=== PATIENT | male | born 2000 | race Caucasian/White ===

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

== ENCOUNTER 2022-11-16 12:03 | Emergency (ER) | payer OTHER, SELFPAY ==
[2022-11-16 12:14] VITALS: BP 132/80; PULSE 82; RESP 18; TEMP 36.8; O2SAT 99
--- NOTE | 2022-11-16 14:08 | ED.GENADUL_ITS ---
Discharge Plan Disposition Patient Disposition: Home Condition: Improving Discharge Details Chief Complaint: Laceration Clinical Impression: Laceration of hand Primary Care Provider: Lashonda Walker ED Provider: Chucho Navarro Home Meds and New Rx's Prescriptions: No Action No Known Home Meds Discharge Instructions Instructions: Laceration (ED) Discharge Data Discharge Physician: Chucho Navarro Medical Decision Making Patient who sustained a laceration to the right hand that was sutured successfully after the wound was irrigated he received a tetanus shot and will be discharged home HPI General Date/Time Provider Initiated Documentation: 11/16/22 14:08 . HPI Narrative: Patient presents emergency department after he got his hand caught in a chain saw sustaining a laceration to the dorsal aspect of the right hand over the fifth metacarpal Related Data Home Medications Medication Instructions Recorded Confirmed Unknown [No Known Home Meds] 11/13/19 11/16/22 Allergies Allergy/AdvReac Type Severity Reaction Status Date / Time poison germaine extract Allergy Rash Verified 12/26/20 15:10 General Stated Complaint: Laceration VIVI: 4 Review of Systems All systems reviewed & are unremarkable except as noted in HPI and below Constitutional Constitutional: Reports as per HPI and Reports system reviewed and no additional complaints, except as documented Eyes Eyes: Reports as per HPI and Reports system reviewed and no additional complaints, except as documented ENT Ears, Nose, Mouth, and Throat: Reports system reviewed and no additional complaints, except as documented and Reports as per HPI Cardiovascular Cardiovascular: Reports as per HPI and Reports system reviewed and no additional complaints, except as documented Respiratory Respiratory: Reports as per HPI and Reports system reviewed and no additional complaints, except as documented Gastrointestinal Gastrointestinal: Reports as per HPI and Reports system reviewed and no additional complaints, except as documented Musculoskeletal Musculoskeletal: Reports system reviewed and no additional complaints, except as documented Neurologic Neurologic: Reports system reviewed and no additional complaints, except as documented Psychiatric Psychiatric: Reports system reviewed and no additional complaints, except as documented Endocrine Endocrine: Reports system reviewed and no additional complaints, except as documented Hematologic/Lymphatic Hematologic/Lymphatic: Reports system reviewed and no additional complaints, except as documented Allergic/Immunologic Allergic/Immunologic: Reports system reviewed and no additional complaints, except as documented PFSH All Active Problems (Updated 11/16/22 @ 14:16 by Chucho Navarro MD) Laceration of hand (Acute) Routine child health exam (Acute 11/29/13) Low ferritin (Acute) 11- twice flagged after blood donation- Nl hgb 13.8 01/12 will follow no eval needed Family History Other No problems noted. Mother No problems noted. Social History Smoking risk assessment performed?: No Alcohol Intake: current Alcohol Intake frequency: a few times a week Alcohol type: beer and wine Drug use: Occasionally Substance use type: marijuana Do you feel safe at home: Yes Do you feel safe in your relationship?: Yes Exam Const General: cooperative, healthy appearing, comfortable and no acute distress HENMT Head: normal to inspection, no palpable skull fracture and normocephalic Ears: hearing grossly normal bilaterally General nose exam: external nose normal Face and sinus: normal facial exam Mouth: oral mucosae normal Teeth and gingiva: dentition normal Eyes General: appearance normal, both eyes and all related structures Conjunctivae: conjunctivae normal EOM: EOM intact bilaterally Neck Neck: normal visual inspection, full ROM and no lymphadenopathy Chest Chest: normal inspection of the chest and normal palpation of entire chest wall Resp Effort & Inspection: normal respiratory effort and able to speak in complete sentences Cardio Jugular venous pressure: no JVD Palpation: normal PMI Rate: regular rate Rhythm: regular rhythm GI Inspection: normal to inspection Back/Spine/Pelvis Back: no CVA tenderness Skin Trauma: laceration right hand irregular and actively bleeding Course Vital Signs Vital signs: Vital Signs Temperature 36.8 C 11/16/22 12:14 Pulse 82 11/16/22 12:14 Respiratory Rate 18 11/16/22 12:14 Blood Pressure 132/80 11/16/22 12:14 Pulse Oximetry 99 11/16/22 12:14 Temperature 36.8 C 11/16/22 12:14 Pulse 82 11/16/22 12:14 Respiratory Rate 18 11/16/22 12:14 Respiratory Effort Normal, Non-Labored 11/16/22 12:17 Blood Pressure 132/80 11/16/22 12:14 Blood Pressure Position Sitting 11/16/22 12:14 Pulse Oximetry 99 11/16/22 12:14 Oxygen Delivery Method Room Air 11/16/22 12:14 Oxygen Flow Rate 0 11/16/22 12:14 Procedures Laceration Laceration 1: Site: hand Side (If applicable): right Size (cm): 4 Description: irregular Depth: simple, single layer Local Anesthetic: Lidocaine 1% Amount of anesthesia used (mL): 5 Pre-repair: wound explored, irrigated extensively and wound margins revised Skin layer closed with: other (prolene) Size (cm): 4-0 Number of sutures: 5 Technique: simple, interrupted
[2022-11-16 14:18] VITALS: PULSE 87; RESP 18; O2SAT 100
== END 2022-11-16 14:19 | disposition home or self-care (01) ==
PROVIDERS: Emergency Provider Emergency Medicine Emergency Medical Services; PCP Student in an Organized Health Care Education/Training Program
DX: S61.411A Laceration without foreign body of right hand, initial encounter (principal); W31.2XXA Contact with powered woodworking and forming machines, initial encounter
CPT/HCPCS: 12002; 90471

== ENCOUNTER 2022-11-22 16:28 | Emergency (ER) | payer SELFPAY ==
[2022-11-22 16:32] VITALS: BP 118/51; PULSE 61; RESP 18; TEMP 37.1; O2SAT 98
--- NOTE | 2022-11-22 16:33 | W.ED.GENAD ---
Discharge Plan Disposition Patient Disposition: Home Discharge Details Clinical Impression: Encounter for removal of sutures Primary Care Provider: Lashonda Walker ED Provider: Vicente Luis Home Meds and New Rx's Prescriptions: No Action No Known Home Meds Discharge Instructions Additional Instructions: You were seen in the emergency department for your suture removal. Your wound appears to be healing well. Please return to the emergency department if you develop any fevers chills or shortness of breath. Discharge Data Discharge Date/Time-TO BE ENTERED AT DEPARTURE: 11/22/22 16:41 Medical Decision Making This is an overall very well-appearing normothermic and not tachycardic palrd-roro-zuzdhatx male with well-healing laceration to the dorsal aspect of his right hand with 4 blue sutures. No signs of superinfection. Nurse will remove the patient's stitches. I did chromosomal disorders counselor him that his wound was at the weakest after stitches were removed and that if he developed any bleeding or any signs of infection such as foul-smelling drainage pus or any fevers that he should return to the ED. He understood his return indications and was discharged with outpatient and management as needed. HPI General Date/Time Provider Initiated Documentation: 11/22/22 16:33. HPI Narrative: This is a [id number]-[id number] 22-year-old male in the emergency department for suture removal following a laceration he sustained 6 days ago to his right hand. He is moving his hand well. He has had no fevers nor any foul-smelling drainage. He denies any new injuries. Related Data Home Medications Medication Instructions Recorded Confirmed Unknown [No Known Home Meds] 11/13/19 11/22/22 Allergies Allergy/AdvReac Type Severity Reaction Status Date / Time poison germaine extract Allergy Rash Verified 11/22/22 16:33 General Stated Complaint: SutureRem VIVI: 5 PFSH All Active Problems (Updated 11/22/22 @ 16:36 by Vicente Luis MD) Laceration of hand (Acute) Encounter for removal of sutures (Acute) Routine child health exam (Acute 11/29/13) Low ferritin (Acute) 11- twice flagged after blood donation- Nl hgb 13.8 01/12 will follow no eval needed Family History Other No problems noted. Mother No problems noted. Social History Smoking/Tobacco Use Status: Never Smoking risk assessment performed?: Yes Alcohol Intake: current Alcohol Intake frequency: a few times a week Alcohol type: beer and wine Drug use: Occasionally Substance use type: marijuana Do you feel safe at home: Yes Do you feel safe in your relationship?: Yes Exam Narrative Exam Narrative: General: Well-appearing in no acute distress speaking in complete sentences. Head: Normocephalic, atraumatic. Ear, nose, mouth, throat: Grossly normal inspection. Normal voice, handling secretions normally. Neck: Trachea midline. Cardiovascular: Well-perfused distal extremities. Respiratory: Nonlabored respiration. Gastrointestinal: Nondistended abdomen. Musculoskeletal: On the dorsal aspect of the patient's right hand just distal to the wrist there is a well-healing approximately 3 cm laceration well approximated with 4 blue sutures. No surrounding erythema nor fluctuance. Skin: Normal for age and race, grossly normal temperature and turgor. No acute rash. Neurologic: Alert and appropriate, no apparent acute deficits. Psychiatric: Mood and manner are appropriate. Grooming and personal hygiene are appropriate. Course Vital Signs Vital signs: Vital Signs Temperature 37.1 C 11/22/22 16:32 Pulse 61 11/22/22 16:32 Respiratory Rate 18 11/22/22 16:32 Blood Pressure 118/51 L 11/22/22 16:32 Pulse Oximetry 98 11/22/22 16:32 Temperature 37.1 C 11/22/22 16:32 Temperature Source Temporal Artery Scan 11/22/22 16:32 Pulse 61 11/22/22 16:32 Respiratory Rate 18 11/22/22 16:32 Blood Pressure 118/51 L 11/22/22 16:32 Pulse Oximetry 98 11/22/22 16:32 Oxygen Delivery Method Room Air 11/22/22 16:32 Oxygen Flow Rate 0 11/22/22 16:32
== END 2022-11-22 16:41 | disposition home or self-care (01) ==
LOC: ER 16:38
PROVIDERS: Emergency Provider Emergency Medicine; PCP Student in an Organized Health Care Education/Training Program
DX: S61.411D Laceration without foreign body of right hand, subsequent encounter (principal); X58.XXXD Exposure to other specified factors, subsequent encounter; Z48.02 Encounter for removal of sutures

== ENCOUNTER 2024-01-16 07:25 | Emergency (ER) | payer SELFPAY ==
[2024-01-16 07:28] VITALS: BP 113/61; PULSE 81; RESP 16; TEMP 36.5; O2SAT 99
--- NOTE | 2024-01-16 07:39 | ED.GENADUL_ITS ---
Discharge Plan Disposition Patient Disposition: Home Condition: Stable Discharge Details Chief Complaint: Laceration Clinical Impression: Laceration of left middle finger Primary Care Provider: Lashonda Walker ED Provider: Edward Dong Home Meds and New Rx's Prescriptions: No Action No Known Home Meds Discharge Instructions Instructions: Laceration Repair With Glue ED Additional Instructions: Return to the emergency department if you develop signs of infection such as spreading redness down the finger or severe pain. HPI General Mode of arrival: ambulatory . Date/Time Provider Initiated Documentation: 01/16/24 07:33 . Limitations to Documentation: no limitations . Information obtained by: patient . History of Present Illness 23 year old M pr esents to the emergency department with the chief complaint of left middle finger injury, described as mild, and is localized to the left and upper extremity. Patient reports no radiation. Patient started experiencing this hour(s) (1) and it has been constant. No relieving factors improve symptom(s), No exacerbating factors reported . Patient notes no other symptoms.. Patient did receive the following treatments prior to arrival, none Related Data Home Medications ?Medication ?Instructions ?Recorded ?Confirmed Unknown [No Known Home Meds] 11/13/19 01/16/24 Allergies Allergy/AdvReac Type Severity Reaction Status Date / Time poison germaine extract Allergy Rash Verified 01/16/24 07:44 General Stated Complaint: Laceration VIVI: 4 Review of Systems All systems reviewed & are unremarkable except as noted in HPI and below Constitutional Constitutional: Denies chills, Denies fever(s) and Denies weakness Cardiovascular Cardiovascular: Denies dyspnea Respiratory Respiratory: Denies dyspnea Gastrointestinal Gastrointestinal: Denies abdominal pain and Denies vomiting Musculoskeletal Musculoskeletal: Denies joint swelling Neurologic Neurologic: Denies weakness Exam Const General: no acute distress Orientation: alert [facility] Head: normal to inspection Ears: external ears normal General nose exam: external nose normal Mouth: moist mucous membranes Eyes General: appearance normal, both eyes and all related structures Neck Neck: normal visual inspection Resp Effort & Inspection: normal respiratory effort and able to speak in complete sentences Cardio Rate: regular rate Skin General skin exam: no rashes or lesions noted Neuro General: patient alert Extrem General: full ROM and capillary refill normal Psych Mental Status: mental status grossly normal Course Vital Signs Vital signs: Vital Signs Temperature 36.5 C 01/16/24 07:28 Pulse 81 01/16/24 07:28 Respiratory Rate 16 01/16/24 07:28 Blood Pressure 113/61 01/16/24 07:28 Pulse Oximetry 99 01/16/24 07:28 Temperature 36.5 C 01/16/24 07:28 Pulse 81 01/16/24 07:28 Respiratory Rate 16 01/16/24 07:28 Blood Pressure 113/61 01/16/24 07:28 Pulse Oximetry 99 01/16/24 07:28 Oxygen Delivery Method Room Air 01/16/24 07:28 Oxygen Flow Rate 0 01/16/24 07:28 Medical Decision Making 23-year-old male denies any significant past medical history and states he is up-to-date on tetanus vaccines, comes in with a left middle finger injury. He says he was cutting a metal centimeter trash when slipped and cut his left anterior middle finger over the distal palmar surface. He did not fall or hit his head. He has a very superficial skin tear of the distal left anterior middle finger. He is full range of motion intact sensation and normal cap refill. The wound is superficial enough for nothing and needs any sutures, will closed with skin adhesive after his cleaned. No findings on exam or history to suggest neurovascular or tendon injury. After copious irrigation and cleaning, and using a finger tourniquet I applied skin adhesive for closure of the wound. He tolerated well. He is stable for discharge, return precautions given. Differential Diagnosis Differential Diagnosis: laceration, abrasion Quality:SDOH Health Related Social Needs: No Data to Display PFSH All Active Problems (Updated 01/16/24 @ 07:51 by Edward Dong MD) Laceration of left middle finger (Acute) Routine child health exam (Acute 11/29/13) Low ferritin (Acute) 11- twice flagged after blood donation- Nl hgb 13.8 01/12 will follow no eval needed Family History Other No problems noted. Mother No problems noted. Social History Smoking/Tobacco Use Status: Never Smoking risk assessment performed?: Yes Alcohol Intake: current Alcohol Intake frequency: a few times a week Alcohol type: beer and wine Drug use: Occasionally Substance use type: marijuana Do you feel safe at home: Yes Do you feel safe in your relationship?: Yes
--- NOTE | 2024-01-16 07:42 | NUR.NOTE ---
Nursing Note: this RN cleanse wound provider repaired with surg glue. patient tolerated well
== END 2024-01-16 08:34 | disposition home or self-care (01) ==
LOC: ER 08:01
PROVIDERS: Emergency Provider Emergency Medicine; PCP Student in an Organized Health Care Education/Training Program
DX: S61.213A Laceration without foreign body of left middle finger without damage to nail, initial encounter (principal); W26.8XXA Contact with other sharp object(s), not elsewhere classified, initial encounter
CPT/HCPCS: 99281; 99282

== ENCOUNTER 2024-09-21 05:56 | Emergency (ER) | payer OTHER, BC, SELFPAY ==
[2024-09-21 05:59] VITALS: BP 136/70; PULSE 76; RESP 18; TEMP 36.5; O2SAT 100
--- NOTE | 2024-09-21 06:33 | ED.GENADUL_ITS ---
Discharge Plan Discharge Details Chief Complaint: Abd Prob Primary Care Provider: Unknown,Unknown ED Provider: Ophelia Ellis Home Meds and New Rx's Prescriptions: No Action No Known Home Meds HPI General Mode of arrival: ambulatory . Date/Time Provider Initiated Documentation: 09/21/24 06:10 . Limitations to Documentation: no limitations . Information obtained by: patient . HPI Narrative: 24yo M presenting with acute RLQ abdominal pain onset this morning. [place] well yesterday. Woke with severe right sided abdominal pain, unrelieved by bowel movement. Pain worse with motion. No nausea, vomiting, or diarrhea. No bloody stool. No fevers. No testicular pain. Decreased appetite this morning. No alleviating factors. Otherwise in his usual state of health. Related Data Home Medications ?Medication ?Instructions ?Recorded ?Confirmed Unknown [No Known Home Meds] 11/13/19 09/21/24 Allergies Allergy/AdvReac Type Severity Reaction Status Date / Time poison germaine extract Allergy Rash Verified 09/21/24 06:03 General Stated Complaint: Abd Prob VIVI: 3 Review of Systems Narrative: see HPI Exam Narrative Exam Narrative: General: Alert, well appearing, well nourished, in no acute distress. Head: Normocephalic, atraumatic Neck: Trachea midline, ?Neck supple. ENT: ?MMM.? No oropharygeal lesions or exudate. Cardiac: ?RRR, no murmurs appreciated Resp: No respiratory distress. CTAB. Abd: ?Soft, non-distended. RLQ TTP with voluntary guarding. No rebound tenderness. : ?No suprapubic tenderness. Extremities: ?No deformities.? No peripheral edema. Neurologic: GCS 15. ? Moves all extremities freely against gravity Course Vital Signs Vital signs: Vital Signs Temperature 36.5 C 09/21/24 05:59 Pulse 76 09/21/24 05:59 Respiratory Rate 18 09/21/24 05:59 Blood Pressure 136/70 09/21/24 05:59 Pulse Oximetry 100 09/21/24 05:59 Temperature 36.5 C 09/21/24 05:59 Temperature Source Oral 09/21/24 05:59 Pulse 76 09/21/24 05:59 Respiratory Rate 18 09/21/24 05:59 Blood Pressure 136/70 09/21/24 05:59 Blood Pressure Position Sitting 09/21/24 05:59 Pulse Oximetry 100 09/21/24 05:59 Oxygen Delivery Method Room Air 09/21/24 05:59 Oxygen Flow Rate 0 09/21/24 05:59 Medical Decision Making 24yo M presenting with acute RLQ abdominal pain onset this morning. Vital signs reassuring on arrival. RLQ TTP on exam with voluntary guarding. Will give tylenol, toradol for pain. Concern for possible appendicitis; less likely bowel obstruction, nephrolithiasis, cystitis, inflammatory bowel disease, diverticulitis, colitis. Will risk stratify with labs and obtain CT to evaluate for potentially surgical pathology. Labs reviewed as below, CBC with leukocytosis to 19, CMP with no actionable abnormalities. Will be signed out to oncoming physician, plan to followup CT and UA. Quality:SDOH Health Related Social Needs: No Data to Display PFSH All Active Problems (Updated 02/16/24 @ 00:08 by CYNTHIA BURGER) Routine child health exam (Acute 11/29/13) Low ferritin (Acute) 11- twice flagged after blood donation- Nl hgb 13.8 01/12 will follow no eval needed Family History Other No problems noted. Mother No problems noted. Social History Smoking/Tobacco Use Status: Never Smoking risk assessment performed?: Yes Alcohol Intake: current Alcohol Intake frequency: a few times a month Alcohol type: beer and wine Drug use: Occasionally Substance use type: marijuana Do you feel safe at home: Yes Do you feel safe in your relationship?: Yes
[2024-09-21] MEDS: Ketorolac 15 MG/ML VIAL IVP (06:41)
[2024-09-21] MEDS: ACETAMINOPHEN 1,000 MG/100 ML BAG 400 MG IVPB (06:41)
[2024-09-21 06:45] LABS: Absolute Basophil Count 0.06 10^3/uL (0.0-0.2); Absolute Lymphocyte Count 1.97 10^3/uL (1.2-3.4); Absolute Monocyte Count 0.73 10^3/uL (0.1-0.8); Basophils % 0.3 %; Eosinophils % 0.7 %; HCT 43.4 % (40.0-50.0); HGB 14.7 g/dL (13.5-17.5); Immature Grans % 0.5 %; MCH 30.3 pg (27.0-33.0); MCHC 33.9 % (32.0-36.0); MCV 90 fL (80-95); MPV 9.1 fL (8.0-11.0); Monocytes % 3.7 %; Neutrophils % 84.8 %; Platelet Count 285 10^3/uL (130-400); RBC 4.85 10^6/uL (4.36-5.78); RDW 12.5 % (11.8-14.1); RDW-SD 41.1 fL; WBC 19.74 10^3/uL (4.4-10.8)
[2024-09-21 06:47] LABS: Absolute Eosinophil Count 0.14 10^3/uL (0.0-0.7); Absolute Neutrophil Count 16.74 10^3/uL (1.2-6.7)
[2024-09-21 07:19] LABS: ALT 20 U/L (16-63); AST 17 U/L (15-37); Albumin 4.2 g/dL (3.4-5.0); Alkaline Phosphatase 67 U/L (46-116); Anion Gap 9.4 mmol/L (3-11); BUN 13 mg/dL (7-18); Bilirubin, Total 0.8 mg/dL (0.2-1.0); CO2 28.6 mmol/L (21.0-32.0); CREATININE 0.9 mg/dL (0.70-1.30); Calcium 9.4 mg/dL (8.5-10.1); Chloride 105 mmol/L (98-107); Estimated GFR 123.07 (mL/min/1.73m2); Glucose 105 mg/dL (74-106); Potassium 4.1 mmol/L (3.5-5.1); Sodium 143 mmol/L (136-145); Total Protein 7.1 g/dL (6.4-8.2)
[2024-09-21 07:35] LABS: Bilirubin Negative (Negative); Blood Negative (Negative); Clarity Cloudy (Clear); Glucose Negative (Negative); Ketones Negative (Negative); Leukocyte Esterase Negative (Negative); Nitrite Negative (Negative); Urobilinogen 0.2 mg/dL (Up to 0.2)
[2024-09-21] MEDS: Omnipaque 350 MG/ML 100 ML BTL IJ (07:47)
[2024-09-21] MEDS: Normal Saline - Diluent 50 ML VIAL IJ (07:49)
--- NOTE | 2024-09-21 07:56 | DI.CT_ITS ---
Exam(s) CT ABDOMEN PELVIS W EXAM: CT ABDOMEN PELVIS W CLINICAL HISTORY: RLQ TTP. TECHNIQUE: Imaging Protocol: Axial computed tomography images with coronal and sagittal reformatted images were created and reviewed CONTRAST MATERIAL: Intravenous: Omnipaque-350 75cc Oral: None COMPARISON: No exams were available for comparison FINDINGS: VISUALIZED LUNG BASES: No nodules nor pleural effusions evident. ABDOMEN: There is no ascites. LIVER: There are no focal hepatic lesions evident. There are mildly dilated intrahepatic ducts evide nt both lobes liver. The CBD is not dilated. GALLBLADDER/BILIARY: No obvious gallbladder pathology. CBD is not dilated. PANCREAS: No evidence of pancreatic mass nor dilatation of the pancreatic duct. SPLEEN: Spleen is not enlarged. No obvious intrasplenic lesions. Splenic and portal veins are paten t. ADRENALS: There are no significant adrenal masses. KIDNEYS:No cysts evident. There is a single nonobstructive small calculus in both kidneys measuring 2 -3 mm.. No solid renal masses. No hydronephrosis. Retroaortic left renal vein is incidentally note d. ABDOMINAL AORTA: Abdominal aorta is not enlarged. LYMPH NODES:There is no retroperitoneal nor paraaortic adenopathy. ABDOMINAL WALL: No evidence of significant anterior abdominal wall nor inguinal hernia. GI: There is no evidence of bowel obstruction, free air, nor abscess. PELVIS: GI: No evidence of appendicitis.No evidence of sigmoid diverticulitis. LYMPH NODES: There is no intrapelvic nor inguinal adenopathy. REPRODUCTIVE: Prostate size normal. URINARY BLADDER: Bladder is collapsed. There are no radiopaque calculi seen in the urinary bladder n or at the ureterovesical junctions. Pelvic ureters are not dilated. OSSEOUS: No fractures and no significant osseous lesions. IMPRESSION: 1. Bilateral nephrolithiasis. There is a single small 2-3 mm calculus in each kidney. No hydronephr osis nor hydroureter. There are no obvious radiopaque calculi evident in the collapsed urinary bladd er lumen. 2. No evidence of acute appendicitis. 3. Mildly dilated intrahepatic ducts. The CBD is not dilated and the gallbladder is not distended. No obvious gallstones. Report called to ER provider 09/21/2024 at 8:26 a.m. RADIATION DOSE DELIVERED: 335.21mGy.cm Total DLP DATA REPOSITORY: All CT scans at this facility are submitted to the National Radiology Data Registry (NRDR) Dose Index Registry (DIR) with the [employer] ([employer]). RADIATION OPTIMIZATION: All CT scans at this facility use at least one of these dose optimization te chniques: automated exposure control; mA and/or kV adjustment per patient size (includes targeted exa ms where dose is matched to clinical indication); or iterative reconstruction.
[2024-09-21 08:22] VITALS: BP 113/62; PULSE 65; RESP 14; TEMP 36.4; O2SAT 100
--- NOTE | 2024-09-21 08:33 | ED.PROG_ITS ---
Date of service: 09/21/24 Time of Service: 08:33 Medical Decision Making Care signed out by Dr. Segura, please see her documentation regarding initial ED presentation and course. Plan at signout was to follow-up on CT imaging. CT of the abdomen pelvis was reviewed and interpreted by Dr. Jackson, radiologist. I spoke with Dr. Jackson about the study. He did visualize the appendix and there is no signs of appendicitis. Impression from Dr. Jackson: 1. Bilateral nephrolithiasis. There is a single small 2-3 mm calculus in each kidney. No hydronephrosis nor hydroureter. There are no obvious radiopaque calculi evident in the collapsed urinary bladder lumen. 2. No evidence of acute appendicitis. 3. Mildly dilated intrahepatic ducts. The CBD is not dilated and the gallbladder is not distended. No obvious gallstones. Labs reviewed and leukocytosis is noted. Urinalysis normal. All results were discussed with the patient. A copy of the CT imaging report was provided to the patient. Patient notes pain completely resolved at this point. Plan for discharge with close outpatient follow-up with PCP. Patient was encouraged to return immediately for any worsening or new concerning symptoms. Patient verbalized understanding. Patient stable at time of discharge. Usual and customary discharge instructions were reviewed. Lab Data Lab results reviewed: Yes I reviewed the patient's lab results. Labs: Laboratory Tests Range/Units 09/21/24 09/21/24 06:35 07:28 WBC (4.4-10.8) 10^3/uL 19.74 H RBC (4.36-5.78) 10^6/uL 4.85 Hgb (13.5-17.5) g/dL 14.7 Hct (40.0-50.0) % 43.4 MCV (80-95) fL 90 MCH (27.0-33.0) pg 30.3 MCHC (32.0-36.0) % 33.9 RDW (11.8-14.1) % 12.5 Plt Count (130-400) 10^3/uL 285 MPV (8.0-11.0) fL 9.1 Immature Gran % % 0.5 Neutrophils % % 84.8 Lymphocytes % % 10.0 Monocytes % % 3.7 Eosinophils % % 0.7 Basophils % % 0.3 Nucleated RBC % (0.0-0.3) % 0.0 Absolute Neutrophils (1.2-6.7) 10^3/uL 16.74 H Absolute Lymphocytes (1.2-3.4) 10^3/uL 1.97 Absolute Monocytes (0.1-0.8) 10^3/uL 0.73 Absolute Eosinophils (0.0-0.7) 10^3/uL 0.14 Absolute Basophils (0.0-0.2) 10^3/uL 0.06 Sodium (136-145) mmol/L 143 Potassium (3.5-5.1) mmol/L 4.1 Chloride (98-107) mmol/L 105 Carbon Dioxide (21.0-32.0) mmol/L 28.6 Anion Gap (3-11) mmol/L 9.4 BUN (7-18) mg/dL 13 Creatinine (0.70-1.30) mg/dL 0.9 Est GFR (CKD-EPI 2020) (mL/min/1.73m2) 123.07 Glucose (74-106) mg/dL 105 Calcium (8.5-10.1) mg/dL 9.4 Total Bilirubin (0.2-1.0) mg/dL 0.8 AST (15-37) U/L 17 ALT (16-63) U/L 20 Alkaline Phosphatase (46-116) U/L 67 Total Protein (6.4-8.2) g/dL 7.1 Albumin (3.4-5.0) g/dL 4.2 Urine Color (Yellow) Yellow Urine Clarity (Clear) Cloudy Urine pH (5-8) 8.0 Ur Specific [place] (1.005-1.025) 1.020 Urine Protein (Neg-Trace) mg/dL Negative Urine Ketones (Negative) mg/dL Negative Urine Blood (Negative) Negative Urine Nitrite (Negative) Negative Urine Bilirubin (Negative) Negative Urine Urobilinogen (Up to 0.2) mg/dL 0.2 Ur Leukocyte Esterase (Negative) Negative Urine Glucose (Negative) mg/dL Negative Quality:SDOH Health Related Social Needs: No Data to Display Discharge Plan Disposition Patient Disposition: Home Condition: Stable Discharge Details Chief Complaint: Abd Prob Clinical Impression: RLQ abdominal pain, Bilateral renal stones Primary Care Provider: Guera Ross ED Provider: Jose Juan Donis Home Meds and New Rx's Prescriptions: No Action No Known Home Meds Discharge Instructions Instructions: Abdominal Pain, Adult ED Additional Instructions: Please take ibuprofen 600 mg by mouth every 6-8 hours as needed for pain for the next few days. Please take tylenol (acetaminophen) 650 mg every 6 hours as needed for pain. Be sure to avoid any other medications that containe tylenol (acetaminophen). Please follow-up with your primary care physician. Return to the emergency department immediately for any worsening or new concerning symptoms. Referrals: Guera Ross [Primary Care Provider] -
== END 2024-09-21 08:44 | disposition home or self-care (01) ==
PROVIDERS: Student in an Organized Health Care Education/Training Program; Emergency Provider Student in an Organized Health Care Education/Training Program; PCP Nurse Practitioner Family
DX: R10.31 Right lower quadrant pain (principal); N20.0 Calculus of kidney
CPT/HCPCS: 00123; 80053; 96374; 96375; 99285; 74177; 81003; 85025; 99284; J0131; J1885; J3490

== ENCOUNTER 2025-01-28 17:55 | Emergency (ER) | payer OTHER, SELFPAY ==
[2025-01-28 18:01] VITALS: BP 119/66; PULSE 74; RESP 16; TEMP 37.1; O2SAT 96
--- NOTE | 2025-01-28 18:39 | W.ED.GENAD ---
Discharge Plan Disposition Patient Disposition: Home Discharge Details Clinical Impression: Laceration of finger Primary Care Provider: Guera Ross ED Provider: Darlene Beth Home Meds and New Rx's Prescriptions: No Action nicotine 14 mg/24 hr patch 24 hour 1 patch transdermal DAILY bupropion HCl [Wellbutrin SR] 150 mg tablet sustained-release 12 hr 150 mg PO DAILY hydrocortisone 2.5 % ointment 1 applic topical BID Discharge Instructions Instructions: Laceration Repair With Glue ED Additional Instructions: Please keep your wound clean and dry. Wash daily antibacterial soap and water. Do not apply any ointments, as this can degrade the glue. I recommend placing a bandage on your thumb and wrapping it with Coban or another wrap so that you cannot bend the thumb. Immobilization will help keep the edges of the laceration well aligned Your tetanus is up-to-date as of 2022 Keep an eye out for signs of infection such as redness, swelling, pus drainage, or increasing pain. If notice any of these, please seek care immediately Referrals: Guera Ross [Primary Care Provider, Medicine] Discharge Data Discharge Date/Time-TO BE ENTERED AT DEPARTURE: 01/28/25 18:19 HPI General Date/Time Provider Initiated Documentation: 01/28/25 18:11. HPI Narrative: Memo is a 24-year-old male presents to the emergency department today for evaluation of left thumb laceration. He sustained a thumb laceration while handling sheet metal without gloves at 0930 hours today. The injury was caused by a scrape from galvanized sheet metal, extends across the knuckle in a diagonal fashion. No distal numbness/tingling, difficulty bending or extending the thumb, other injuries reported. Has received tetanus vaccine in the past. He is right-handed Related Data Home Medications ?Medication ?Instructions ?Recorded ?Confirmed bupropion HCl 150 mg tablet,12 hr 150 mg PO DAILY 10/08/24 01/28/25 sustained-release (Wellbutrin SR) hydrocortisone 2.5 % topical 1 applic topical BID 10/08/24 01/28/25 ointment nicotine 14 mg/24 hr daily 1 patch transdermal DAILY 10/08/24 01/28/25 transdermal patch Allergies Allergy/AdvReac Type Severity Reaction Status Date / Time poison germaine extract Allergy Rash Verified 01/28/25 18:05 General Stated Complaint: Laceration VIVI: 4 Exam Narrative Exam Narrative: General Appearance: Normal. Vital signs: Within normal limits. Back, Musculoskeletal: Superficial 1 cm diagonal thumb laceration across the DIP joint of the left thumb. Strength intact with resistance testing. Full extension and flexion of thumb. Brisk cap refill. No color change, ecchymosis, or swelling to the thumb. No surrounding erythema Psychiatric: Normal. Course Vital Signs Vital signs: Vital Signs Temperature 37.1 C 01/28/25 18:01 Pulse 74 01/28/25 18:01 Respiratory Rate 16 01/28/25 18:01 Blood Pressure 119/66 01/28/25 18:01 Pulse Oximetry 96 01/28/25 18:01 Temperature 37.1 C 01/28/25 18:01 Temperature Source Oral 01/28/25 18:01 Pulse 74 01/28/25 18:01 Respiratory Rate 16 01/28/25 18:01 Blood Pressure 119/66 01/28/25 18:01 Blood Pressure Position Sitting 01/28/25 18:01 Pulse Oximetry 96 01/28/25 18:01 Oxygen Delivery Method Room Air 01/28/25 18:01 Oxygen Flow Rate 0 01/28/25 18:01 Pain Level 3 01/28/25 18:06 Medical Decision Making Initial Assessment: Thumb laceration from sheet metal, no other injuries. No red flags concerning for foreign bodies, bony abnormality, or tendon disruption. ED Course: - Wound cleaned with tap water and antiseptic hand wash for 2-3 minutes, explored to the base in a bloodless field. - Dermabond applied - Thumb immobilized with Coban wrap Final Assessment: Wound cleaned and glued, thumb immobilized. Tetanus status reviewed, up-to-date, 2022 Clinical Impression: - Superficial left thumb laceration Disposition: Reviewed discharge instruction with patient, including wound care, red flags indicate need for return to emergency care such as signs of infection, and symptomatic management - Discharge: Home, advised to keep thumb immobilized to aid with healing and to avoid pulling the edges apart. - Follow-Up: PCP if any signs of infection Patient Education: Clean wound with tap water for 2-3 minutes, keep thumb immobilized with Coban wrap, avoid bending thumb. Patient consented to the use of JONATHAN PFSH All Active Problems (Updated 01/28/25 @ 18:40 by Darlene Schwartz) Laceration of finger (Acute) Otalgia (Acute) Routine child health exam (Acute 11/29/13) Low ferritin (Acute) 11- twice flagged after blood donation- Nl hgb 13.8 01/12 will follow no eval needed Medical History (Updated 01/28/25 @ 18:40 by Darlene Schwartz) Kidney stone Nicotine dependence Generalized anxiety disorder Moderate major depression Alopecia areata Family History Other No problems noted. Mother No problems noted. Social History Smoking/Tobacco Use Status: Never Smoking risk assessment performed?: Yes Alcohol Intake: current Alcohol Intake frequency: a few times a month Alcohol type: beer and wine Drug use: Occasionally Substance use type: marijuana Do you feel safe at home: Yes Do you feel safe in your relationship?: Yes
== END 2025-01-28 18:19 | disposition home or self-care (01) ==
PROVIDERS: Emergency Provider Nurse Practitioner Family; PCP Nurse Practitioner Family
DX: S61.012A Laceration without foreign body of left thumb without damage to nail, initial encounter (principal); W26.8XXA Contact with other sharp object(s), not elsewhere classified, initial encounter; Y99.0 Civilian activity done for income or pay
CPT/HCPCS: 99283; 99282